=== PATIENT | male | born 1955 | race Caucasian/White ===

== ENCOUNTER 2021-06-30 22:10 | Inpatient (IN) | payer MEDICARE ==
[~2021-06-30 22:10] MED LIST: Iopamidol-370 76% 500 ML 1 ML ONE
[2021-06-30] MEDS ORDERED: Fentanyl 100 MCG/2 ML VIAL ONE (22:19)
[2021-06-30 22:29] LABS: #Eosinphils 0.1 thou/uL (0.0-0.7); #Lymphocytes 1.9 thou/uL (1.20-3.40); #Monocytes 1.2 thou/uL (0.11-0.59); #Neutrophils 9.5 thou/uL (1.40-6.50); %Basophils 0.1 % (0.0-1.0); %Eosinophils 0.4 % (0.0-10.0); %Lymphocytes 15.1 % (21.0-51.0); %Monocytes 9.5 % (0.0-10.0); %Neutrophils 74.9 % (42.0-75.0); Hemoglobin 16.7 g/dL (14.0-18.0); Mean Corpuscular HGB CONC 32.2 g/dL (32.0-36.0); Mean Corpuscular Hemoglobin 32.2 pg (27.0-31.0); Mean Corpuscular Volume 99.8 fL (78.0-98.0); Mean Platelet Volume 8.8 fL (7.4-10.4); Platelet Count 108 thou/uL (130-400); RBC Distribution Width 14.5 % (11.5-14.5); Red Blood Cell (RBC) Count 5.17 mill/uL (4.70-6.10); White Blood Cell (WBC) Count 12.6 thou/uL (4.8-10.8)
[2021-06-30] MEDS ORDERED: Fentanyl CADD 100 ML IV SCH (22:30)
[2021-06-30] MEDS ORDERED: niCARdipine 20MG In NaCl 20 MG/200 ML BAG ONE (22:35)
[2021-06-30] MEDS ORDERED: Propofol 1,000 MG/100 ML VIAL IV ONE (22:35)
[2021-06-30 22:39] LABS: PTT 27.9 sec (22.9-36.1); Prothrombin Time 13.5 sec (12.0-14.7)
[2021-06-30] MEDS ORDERED: Dextrose 5% in Water 1,000 ML IV PRN (22:43)
[2021-06-30] MEDS ORDERED: Ondansetron ODT 4 MG TAB PO PRN (22:43)
[2021-06-30] MEDS ORDERED: HumaLOG 300 UNITS/3 ML VIAL SC PRN (22:43)
[2021-06-30] MEDS ORDERED: Dextrose 50% Abboject 50 ML SYRINGE SLOW IVP PRN (22:43)
[2021-06-30] MEDS ORDERED: methylPREDNISolone Sod Succ 40 MG VIAL ONE (22:44)
[2021-06-30] MEDS ORDERED: diphenhydrAMINE 50 MG/ML VIAL ONE (22:44)
[2021-06-30] MEDS ORDERED: Famotidine/PF 20 mg/2ml Vial ONE (22:44)
[2021-06-30 22:56] LABS: Actual Bicarbonate (HCO3a) 20.6 mEq/L (22-28); Analyzer IN Cardio ER; Base Excess (BEa) -7.8 mEq/L (-2.0 to +3.0); CO2 Tension 52.6 mmHg (35.0-45.0); Calcium, Ionized (arterial) 1.19 mmol/L (1.12-1.30); Carboxyhemoglobin (COHb) 0.7 gm% (0.0-3.0); O2 Tension (PaO2), arterial 263.2 mmHg (> 80.0); Potassium - ABG Lab 4.11 mmol/L (3.70-5.30)
[2021-06-30 22:58] LABS: Puncture Site RBA; pH, Arterial 7.21 (7.35-7.45)
[2021-06-30 22:59] LABS: ALT (SGPT) 36 U/L (8-55); AST (SGOT) 41 U/L (5-34); Albumin 3.8 g/dL (3.4-4.8); Alkaline Phosphatase 95 U/L (40-110); Anion Gap 17 mmol/L (10-20); BUN (Urea Nitrogen) 14 mg/dL (8.4-25.7); CK (CPK) 96 U/L (30-200); Calc. Creatinine Clearance 0 mL/min (70-130); Calcium 8.6 mg/dL (7.8-10.44); Carbon Dioxide 16 mmol/L (23-31); Chloride 102 mmol/L (98-107); Globulin 3.8 g/dL (2.4-3.5); Glucose 104 mg/dL (80-115); Magnesium 2.2 mg/dL (1.6-2.6); Potassium 4.4 mmol/L (3.5-5.1); Protein, Total 7.6 g/dL (5.8-8.1); Sodium 131 mmol/L (136-145)
[2021-06-30 23:04] LABS: Bilirubin Negative (Negative); Blood, Urine Negative (Negative); Clarity Clear (Clear); Glucose, Urine (Dipstick) Normal (Negative); Ketone, Urine Negative (Negative); Leukocyte Negative Leu/uL (Negative); Nitrite Negative (Negative); Protein, Urine (Dipstick) Negative (Neg-Trace); Specific Gravity, Urine 1.007 (1.002-1.036); Urobilinogen Normal mg/dL (Less than 2)
[2021-06-30 23:14] LABS: Amphetamine Not Detected (NotDetected); Barbiturates Screen Not Detected (NotDetected); Benzodiazepine Screen Not Detected (NotDetected); Cocaine Metabolite Screen Not Detected (NotDetected); Methadone Not Detected (NotDetected); Methamphetamine Not Detected (NotDetected); Opiate Screen Not Detected (NotDetected); Oxycodone Screen Not Detected (NotDetected); Phencyclidine (PCP) Not Detected (NotDetected); THC/Cannabinoid Screen Detected (NotDetected); Tricyclic Screen Not Detected (NotDetected)
[2021-06-30] MEDS ORDERED: Propofol 1,000 MG/100 ML VIAL IV PRN (23:21)
[2021-07-01 00:07] LABS: SARS-CoV-2 NAA Rapid Test Not Detected (NotDetected)
[2021-07-01] MEDS ORDERED: Piperacillin/Tazobactam 3.375 GM in Sodium Chloride 0.9% 100 ML IVPB SCH (00:45)
[2021-07-01] MEDS ORDERED: Propofol 1,000 MG/100 ML VIAL IV ONE (00:48)
[2021-07-01] MEDS ORDERED: Hydrocortisone Sod Succ/PF 250 mg/2 ml Vial SLOW IVP SCH (01:00)
[2021-07-01] MEDS ORDERED: Lorazepam 2 MG/ML VIAL ONE (01:11)
[2021-07-01] MEDS ORDERED: DISCONTINUE PREVIOUS NARCOTIC PAIN MEDICATIONS AND BENZODIAZEPINES FS SCH (01:30)
[2021-07-01] MEDS ORDERED: Propofol BOLUS 1,000 MG/100 ML VIAL IV PRN (01:30)
[2021-07-01] MEDS ORDERED: Lorazepam 2 MG/ML VIAL SLOW IVP PRN (01:30)
[2021-07-01] MEDS ORDERED: Fentanyl BOLUS 250 ML IVPB PRN (01:30)
[2021-07-01] MEDS ORDERED: Morphine 2 MG/ML VIAL SLOW IVP PRN (01:30)
[2021-07-01] MEDS ORDERED: Morphine 4 MG/ML VIAL SLOW IVP PRN (01:32)
[2021-07-01] MEDS: Sodium Chloride 0.9% 1,000 ML IV SCH ×3 (01:48→19:45)
[2021-07-01] MEDS: Hydrocortisone Sod Succ/PF 100 mg/2 ml Vial IVP SCH ×4 (02:51→21:21)
[2021-07-01] MEDS: Thiamine HCl 200 MG/2 ML VIAL SLOW IVP SCH (02:51)
[2021-07-01] MEDS: hydrALAZINE 20 MG/ML VIAL SLOW IVP PRN (02:56)
[2021-07-01] MEDS: Propofol 1,000 MG/100 ML VIAL IV PRN ×7 (03:16→22:56)
[2021-07-01 03:39] LABS: ALT (SGPT) 32 U/L (8-55); AST (SGOT) 28 U/L (5-34); Albumin 3.3 g/dL (3.4-4.8); Alkaline Phosphatase 75 U/L (40-110); Anion Gap 11 mmol/L (10-20); BUN (Urea Nitrogen) 13 mg/dL (8.4-25.7); Bilirubin, Direct 0.4 mg/dL (0.1-0.3); Bilirubin, Total 0.9 mg/dL (0.2-1.2); Calc. Creatinine Clearance 171 mL/min (70-130); Calcium 8.6 mg/dL (7.8-10.44); Carbon Dioxide 21 mmol/L (23-31); Chloride 104 mmol/L (98-107); Glucose 133 mg/dL (80-115); Magnesium 2.2 mg/dL (1.6-2.6); Phosphorus 2.7 mg/dL (2.3-4.7); Potassium 4.5 mmol/L (3.5-5.1); Protein, Total 6.4 g/dL (5.8-8.1); Sodium 131 mmol/L (136-145)
[2021-07-01 03:40] LABS: Band 1 % (5-11); Hemoglobin 15.5 g/dL (14.0-18.0); Lymphocytes 16 % (21-51); MDiff Complete? YES; Mean Corpuscular HGB CONC 32.7 g/dL (32.0-36.0); Mean Corpuscular Hemoglobin 32.3 pg (27.0-31.0); Mean Corpuscular Volume 98.8 fL (78.0-98.0); Mean Platelet Volume 8.9 fL (7.4-10.4); Monocytes 6 % (0-10); Neutrophil 75 % (42-75); Platelet Count 95 thou/uL (130-400); Platelet Morphology Comment Appears Decreased; RBC Distribution Width 14.6 % (11.5-14.5); Reactive Lymphocytes 2 % (0-10); Red Blood Cell (RBC) Count 4.79 mill/uL (4.70-6.10); White Blood Cell (WBC) Count 8.7 thou/uL (4.8-10.8)
[2021-07-01 03:52] LABS: Lactic Acid 1.1 mmol/L (0.5-2.2)
[2021-07-01] MEDS ORDERED: VANCOMYCIN 2 GRAM/400 ML BAG 2 GM in Premix Bag 1 BAG IVPB SCH (04:00)
[2021-07-01] MEDS: Labetalol HCl 100 MG/20 ML VIAL SLOW IVP PRN (04:05)
[2021-07-01] MEDS ORDERED: Oxazepam 10 MG CAP FS SCH (06:00)
[2021-07-01] MEDS: Piperacillin/Tazobactam 3.375 GM in Sodium Chloride 0.9% 100 ML IVPB SCH ×3 (06:02→22:53)
[2021-07-01 08:34] LABS: Base Excess (BEa) -3.2 mEq/L (-2.0 to +3.0); CO2 Tension 31.3 mmHg (35.0-45.0); Calcium, Ionized (arterial) 1.18 mmol/L (1.12-1.30); Carboxyhemoglobin (COHb) 0.7 gm% (0.0-3.0); Hemoglobin (Hb) 15.6 g/dL (14.0-18.0); Potassium - ABG Lab 4.12 mmol/L (3.70-5.30); pH, Arterial 7.42 (7.35-7.45)
[2021-07-01 08:35] LABS: ALV-art Gradient 159.075 mmHg (0-20); Puncture Site RRA
[2021-07-01] MEDS: Folic Acid 1 MG TAB PO SCH (08:52)
[2021-07-01] MEDS: Vancomycin 1.5 GRAM/300 ML BAG 1.5 GM in Premix Bag 1 BAG IVPB SCH ×2 (13:30→20:59)
[2021-07-02] MEDS: Thiamine HCl 200 MG/2 ML VIAL SLOW IVP SCH ×2 (00:09→23:37)
[2021-07-02] MEDS: Hydrocortisone Sod Succ/PF 100 mg/2 ml Vial IVP SCH ×4 (02:21→20:31)
[2021-07-02] MEDS: Propofol 1,000 MG/100 ML VIAL IV PRN ×4 (02:21→23:37)
[2021-07-02 04:00] LABS: Vancomycin, Trough 18.3 ug/mL
[2021-07-02] MEDS: Vancomycin 1.5 GRAM/300 ML BAG 1.5 GM in Premix Bag 1 BAG IVPB SCH ×2 (04:08→11:35)
[2021-07-02] MEDS: Sodium Chloride 0.9% 1,000 ML IV SCH ×2 (05:45→15:40)
[2021-07-02] MEDS: Piperacillin/Tazobactam 3.375 GM in Sodium Chloride 0.9% 100 ML IVPB SCH (06:27)
[2021-07-02] MEDS: Folic Acid 1 MG TAB PO SCH (09:27)
[2021-07-02] MEDS ORDERED: Losartan 25 MG TAB PO SCH (12:45)
[2021-07-02] MEDS ORDERED: Dexamethasone 10 MG/ML VIAL SLOW IVP SCH (12:45)
[2021-07-02] MEDS ORDERED: hydrALAZINE 20 MG/ML VIAL ONE (12:48)
[2021-07-02] MEDS: hydrALAZINE 20 MG/ML VIAL SLOW IVP PRN (12:50)
[2021-07-02] MEDS ORDERED: Dexamethasone 10 MG/ML VIAL ONE (12:59)
[2021-07-02 13:43] LABS: Anion Gap 10 mmol/L (10-20); BUN (Urea Nitrogen) 21 mg/dL (8.4-25.7); Calc. Creatinine Clearance 170 mL/min (70-130); Calcium 8.3 mg/dL (7.8-10.44); Carbon Dioxide 22 mmol/L (23-31); Chloride 108 mmol/L (98-107); Glucose 111 mg/dL (80-115); Sodium 136 mmol/L (136-145)
[2021-07-02] MEDS ORDERED: Hydrocortisone Sod Succ/PF 100 mg/2 ml Vial ONE (14:35)
[2021-07-02] MEDS ORDERED: Propofol 1,000 MG/100 ML VIAL IV ONE (17:32)
[2021-07-02] MEDS ORDERED: Furosemide 20 MG/2 ML VIAL SLOW IVP SCH (23:45)
[2021-07-03] MEDS: Hydrocortisone Sod Succ/PF 100 mg/2 ml Vial IVP SCH ×3 (01:47→16:40)
[2021-07-03 04:00] LABS: Vancomycin, Trough 9.7 ug/mL
[2021-07-03 04:08] LABS: Anion Gap 12 mmol/L (10-20); BUN (Urea Nitrogen) 23 mg/dL (8.4-25.7); Calc. Creatinine Clearance 175 mL/min (70-130); Calcium 8.5 mg/dL (7.8-10.44); Carbon Dioxide 21 mmol/L (23-31); Chloride 107 mmol/L (98-107); Glucose 131 mg/dL (80-115); Potassium 3.9 mmol/L (3.5-5.1); Sodium 136 mmol/L (136-145)
[2021-07-03] MEDS: Propofol 1,000 MG/100 ML VIAL IV PRN (06:28)
[2021-07-03 08:00] LABS: Actual Bicarbonate (HCO3a) 22.8 mEq/L (22-28); Base Excess (BEa) 0.6 mEq/L (-2.0 to +3.0); CO2 Tension 30.2 mmHg (35.0-45.0); Calcium, Ionized (arterial) 1.21 mmol/L (1.12-1.30); Carboxyhemoglobin (COHb) 0.3 gm% (0.0-3.0); Hemoglobin (Hb) 15.4 g/dL (14.0-18.0); O2 Tension (PaO2), arterial 75.1 mmHg (> 80.0); Potassium - ABG Lab 3.88 mmol/L (3.70-5.30)
[2021-07-03] MEDS: Losartan 25 MG TAB PO SCH (08:19)
[2021-07-03] MEDS: Folic Acid 1 MG TAB PO SCH (08:19)
[2021-07-03 08:49] LABS: Puncture Site LRA
[2021-07-03] MEDS ORDERED: Furosemide 20 MG/2 ML VIAL SLOW IVP SCH (09:00)
[2021-07-04] MEDS: Thiamine HCl 200 MG/2 ML VIAL SLOW IVP SCH (00:40)
[2021-07-04 04:09] LABS: Anion Gap 9 mmol/L (10-20); BUN (Urea Nitrogen) 36 mg/dL (8.4-25.7); Calc. Creatinine Clearance 183 mL/min (70-130); Calcium 8.4 mg/dL (7.8-10.44); Carbon Dioxide 26 mmol/L (23-31); Chloride 109 mmol/L (98-107); Glucose 100 mg/dL (80-115); Potassium 3.6 mmol/L (3.5-5.1); Sodium 140 mmol/L (136-145)
[2021-07-04] MEDS: hydrALAZINE 20 MG/ML VIAL SLOW IVP PRN ×2 (04:29→21:13)
[2021-07-04 04:58] LABS: #Lymphocytes 1.3 thou/uL (1.20-3.40); #Monocytes 0.7 thou/uL (0.11-0.59); #Neutrophils 5.3 thou/uL (1.40-6.50); %Basophils 0.4 % (0.0-1.0); %Eosinophils 0.1 % (0.0-10.0); %Lymphocytes 17.3 % (21.0-51.0); %Neutrophils 72.1 % (42.0-75.0); Hemoglobin 15.2 g/dL (14.0-18.0); Mean Corpuscular HGB CONC 33.5 g/dL (32.0-36.0); Mean Corpuscular Hemoglobin 33.2 pg (27.0-31.0); Mean Corpuscular Volume 99.1 fL (78.0-98.0); Mean Platelet Volume 9.8 fL (7.4-10.4); Platelet Count 54 thou/uL (130-400); Platelet Morphology Comment Appears Decreased; RBC Distribution Width 14.8 % (11.5-14.5); Red Blood Cell (RBC) Count 4.59 mill/uL (4.70-6.10); White Blood Cell (WBC) Count 7.3 thou/uL (4.8-10.8)
[2021-07-04] MEDS: Losartan 25 MG TAB PO SCH (09:00)
[2021-07-04] MEDS ORDERED: FLU VACC QS2021-22(6MOS UP)/PF 60 MCG/0.5 ML SYRINGE IM ONE (09:00)
[2021-07-04] MEDS: Folic Acid 1 MG TAB PO SCH (09:00)
[2021-07-04] MEDS ORDERED: Electrolyte Replacement Protocol 1 EACH IVPB SCH (15:02)
[2021-07-04] MEDS: Dextrose 5 % And 0.9 % NaCl 1,000 ML IV SCH (16:23)
[2021-07-05] MEDS: Thiamine HCl 200 MG/2 ML VIAL SLOW IVP SCH (00:46)
[2021-07-05 03:53] LABS: #Eosinphils 0.1 thou/uL (0.0-0.7); #Lymphocytes 1.3 thou/uL (1.20-3.40); #Monocytes 0.7 thou/uL (0.11-0.59); #Neutrophils 6.3 thou/uL (1.40-6.50); %Basophils 0.3 % (0.0-1.0); %Eosinophils 0.8 % (0.0-10.0); %Lymphocytes 15.4 % (21.0-51.0); %Monocytes 7.9 % (0.0-10.0); %Neutrophils 75.7 % (42.0-75.0); Hemoglobin 15.9 g/dL (14.0-18.0); Mean Corpuscular HGB CONC 32.4 g/dL (32.0-36.0); Mean Corpuscular Hemoglobin 32.3 pg (27.0-31.0); Mean Corpuscular Volume 99.9 fL (78.0-98.0); Mean Platelet Volume 10.1 fL (7.4-10.4); Platelet Count 59 thou/uL (130-400); RBC Distribution Width 14.9 % (11.5-14.5); Red Blood Cell (RBC) Count 4.92 mill/uL (4.70-6.10); White Blood Cell (WBC) Count 8.3 thou/uL (4.8-10.8)
[2021-07-05 04:07] LABS: Anion Gap 10 mmol/L (10-20); BUN (Urea Nitrogen) 32 mg/dL (8.4-25.7); Calc. Creatinine Clearance 176 mL/min (70-130); Calcium 8.7 mg/dL (7.8-10.44); Carbon Dioxide 24 mmol/L (23-31); Chloride 111 mmol/L (98-107); Glucose 99 mg/dL (80-115); Magnesium 2.6 mg/dL (1.6-2.6); Potassium 3.9 mmol/L (3.5-5.1); Sodium 141 mmol/L (136-145)
[2021-07-05] MEDS: Losartan 25 MG TAB PO SCH (09:09)
[2021-07-05] MEDS: Folic Acid 1 MG TAB PO SCH (09:09)
[2021-07-05] MEDS: Pantoprazole 40 MG VIAL IVP SCH (10:01)
[2021-07-05] MEDS: hydrALAZINE 20 MG/ML VIAL SLOW IVP PRN ×2 (11:23→19:06)
[2021-07-05] MEDS: Dextrose 5 % And 0.9 % NaCl 1,000 ML IV SCH (11:25)
[2021-07-05] MEDS ORDERED: Tamsulosin HCl 0.4 MG CAP PO SCH (14:15)
[2021-07-05] MEDS ORDERED: Rifaximin 550 MG TAB PO SCH (14:15)
[2021-07-05] MEDS: Labetalol HCl 100 MG/20 ML VIAL SLOW IVP PRN (17:41)
[2021-07-05] MEDS: Tamsulosin HCl 0.4 MG CAP PO SCH (20:49)
[2021-07-05] MEDS: Rifaximin 550 MG TAB PO SCH (20:49)
[2021-07-05] MEDS: Bisacodyl 10 MG SUPP PR SCH (20:50)
[2021-07-06] MEDS: Thiamine HCl 200 MG/2 ML VIAL SLOW IVP SCH ×2 (00:42→23:59)
[2021-07-06] MEDS: hydrALAZINE 20 MG/ML VIAL SLOW IVP PRN (03:06)
[2021-07-06] MEDS: Labetalol HCl 100 MG/20 ML VIAL SLOW IVP PRN (03:53)
[2021-07-06 04:19] LABS: #Eosinphils 0.1 thou/uL (0.0-0.7); #Lymphocytes 1.9 thou/uL (1.20-3.40); #Monocytes 0.8 thou/uL (0.11-0.59); #Neutrophils 6.7 thou/uL (1.40-6.50); %Basophils 0.2 % (0.0-1.0); %Eosinophils 1.5 % (0.0-10.0); %Lymphocytes 19.9 % (21.0-51.0); %Neutrophils 70.4 % (42.0-75.0); Hemoglobin 15.1 g/dL (14.0-18.0); Mean Corpuscular HGB CONC 32.3 g/dL (32.0-36.0); Mean Corpuscular Hemoglobin 31.9 pg (27.0-31.0); Mean Corpuscular Volume 98.8 fL (78.0-98.0); Mean Platelet Volume 10.4 fL (7.4-10.4); Platelet Count 66 thou/uL (130-400); RBC Distribution Width 14.8 % (11.5-14.5); Red Blood Cell (RBC) Count 4.74 mill/uL (4.70-6.10); White Blood Cell (WBC) Count 9.5 thou/uL (4.8-10.8)
[2021-07-06 04:23] LABS: Anion Gap 11 mmol/L (10-20); BUN (Urea Nitrogen) 23 mg/dL (8.4-25.7); Calc. Creatinine Clearance 185 mL/min (70-130); Calcium 8.3 mg/dL (7.8-10.44); Carbon Dioxide 21 mmol/L (23-31); Chloride 108 mmol/L (98-107); Glucose 93 mg/dL (80-115); Potassium 3.7 mmol/L (3.5-5.1); Sodium 136 mmol/L (136-145)
[2021-07-06] MEDS: Dextrose 5 % And 0.9 % NaCl 1,000 ML IV SCH (08:24)
[2021-07-06] MEDS: Losartan 25 MG TAB PO SCH (09:24)
[2021-07-06] MEDS: Tamsulosin HCl 0.4 MG CAP PO SCH ×2 (09:24→21:05)
[2021-07-06] MEDS: Folic Acid 1 MG TAB PO SCH (09:25)
[2021-07-06] MEDS: Rifaximin 550 MG TAB PO SCH ×2 (09:25→21:05)
[2021-07-06] MEDS: Pantoprazole 40 MG VIAL IVP SCH (09:25)
[2021-07-06] MEDS: Bisacodyl 10 MG SUPP PR SCH (21:05)
[2021-07-07 04:22] LABS: Anion Gap 12 mmol/L (10-20); BUN (Urea Nitrogen) 16 mg/dL (8.4-25.7); Calc. Creatinine Clearance 205 mL/min (70-130); Calcium 8.6 mg/dL (7.8-10.44); Carbon Dioxide 21 mmol/L (23-31); Chloride 106 mmol/L (98-107); Glucose 94 mg/dL (80-115); Potassium 3.6 mmol/L (3.5-5.1); Sodium 135 mmol/L (136-145)
[2021-07-07 04:24] LABS: #Eosinphils 0.2 thou/uL (0.0-0.7); #Lymphocytes 1.7 thou/uL (1.20-3.40); #Monocytes 0.9 thou/uL (0.11-0.59); #Neutrophils 6.8 thou/uL (1.40-6.50); %Basophils 0.3 % (0.0-1.0); %Eosinophils 1.8 % (0.0-10.0); %Lymphocytes 17.5 % (21.0-51.0); %Neutrophils 71.4 % (42.0-75.0); Hemoglobin 15.6 g/dL (14.0-18.0); Mean Corpuscular HGB CONC 32.6 g/dL (32.0-36.0); Mean Corpuscular Hemoglobin 32.1 pg (27.0-31.0); Mean Corpuscular Volume 98.4 fL (78.0-98.0); Mean Platelet Volume 9.9 fL (7.4-10.4); Platelet Count 71 thou/uL (130-400); RBC Distribution Width 14.8 % (11.5-14.5); Red Blood Cell (RBC) Count 4.85 mill/uL (4.70-6.10); White Blood Cell (WBC) Count 9.5 thou/uL (4.8-10.8)
[2021-07-07] MEDS: Losartan 25 MG TAB PO SCH (09:31)
[2021-07-07] MEDS: Tamsulosin HCl 0.4 MG CAP PO SCH ×2 (09:31→21:29)
[2021-07-07] MEDS: Rifaximin 550 MG TAB PO SCH ×2 (09:31→21:29)
[2021-07-07] MEDS: Folic Acid 1 MG TAB PO SCH (09:31)
[2021-07-07] MEDS: Pantoprazole 40 MG VIAL IVP SCH (09:32)
[2021-07-07 14:07] VITALS: BMI 31.3
[2021-07-07] MEDS: Bisacodyl 10 MG SUPP PR SCH (21:29)
[2021-07-08] MEDS: hydrALAZINE 20 MG/ML VIAL SLOW IVP PRN (00:07)
[2021-07-08] MEDS: Rifaximin 550 MG TAB PO SCH ×2 (09:12→20:52)
[2021-07-08] MEDS: Thiamine 100 MG TAB PO SCH (09:13)
[2021-07-08] MEDS: Folic Acid 1 MG TAB PO SCH (09:13)
[2021-07-08] MEDS: Tamsulosin HCl 0.4 MG CAP PO SCH ×2 (09:13→20:52)
[2021-07-08] MEDS: Losartan 25 MG TAB PO SCH (09:13)
[2021-07-08 11:08] LABS: SARS-CoV-2 PCR by NAA Not Detected (NotDetected)
[2021-07-09] MEDS: Tamsulosin HCl 0.4 MG CAP PO SCH (09:48)
[2021-07-09] MEDS: Thiamine 100 MG TAB PO SCH (09:48)
[2021-07-09] MEDS: Folic Acid 1 MG TAB PO SCH (09:48)
[2021-07-09] MEDS: Losartan 25 MG TAB PO SCH (09:48)
[2021-07-09] MEDS: Rifaximin 550 MG TAB PO SCH (09:48)
[2021-07-09 17:04] VITALS: BP 121/80; TEMP 98.3
[2021-07-09] MEDS ORDERED: Atorvastatin Calcium 10 MG TAB PO SCH (21:00)
== END 2021-07-09 17:18 | DRG 64 ==
LOC: ERS 22:10 → CCU 22:20 → NEURO 07-09 06:30
PROVIDERS: ADMIT Internal Medicine; ATTEND Internal Medicine
PROC: 0D9670Z Drainage of Stomach with Drainage Device, Via Natural or Artificial Opening (ICD-10-PCS; principal; 2021-06-30)
PROC: 5A1945Z Respiratory Ventilation, 24-96 Consecutive Hours (ICD-10-PCS; 2021-07-01)
DX: I61.3 Nontraumatic intracerebral hemorrhage in brain stem (principal); J96.02 Acute respiratory failure with hypercapnia; J96.01 Acute respiratory failure with hypoxia; E27.40 Unspecified adrenocortical insufficiency; E87.2 Acidosis; G93.49 Other encephalopathy; Z66 Do not resuscitate; Z20.822 Contact with and (suspected) exposure to COVID-19; I10 Essential (primary) hypertension; F12.10 Cannabis abuse, uncomplicated; B18.2 Chronic viral hepatitis C; K74.60 Unspecified cirrhosis of liver; M06.9 Rheumatoid arthritis, unspecified; D72.829 Elevated white blood cell count, unspecified; D75.838 Other thrombocytosis; F10.20 Alcohol dependence, uncomplicated; I65.22 Occlusion and stenosis of left carotid artery; E66.9 Obesity, unspecified; R40.20 Unspecified coma; E16.2 Hypoglycemia, unspecified; Z98.890 Other specified postprocedural states; Z82.49 Family history of ischemic heart disease and other diseases of the circulatory system; Z79.899 Other long term (current) drug therapy; Z91.041 Radiographic dye allergy status; Z68.32 Body mass index [BMI] 32.0-32.9, adult; Z87.891 Personal history of nicotine dependence
CPT/HCPCS: 36415; 36416; 36600; 70450; 70496; 70498; 71045; 71260; 72125; 74177; 74230; 80048; 80076; 80202; 80306; 81003; 82533; 82550; 82805; 83605; 83735; 84100; 84146; 85007; 85025; 85027; 85610; 85730; 86850; 86900; 86901; 87040; 94002; 94003; 94640; 96374; 96375; C9113; J0360; J1100; J1200; J1720; J1940; J2060; J2543; J2704; J2920; J3010; J3370; J3411; J3490; J7042; J7050; J7620; Q9967; S0028; U0002; U0003; U0005